=== PATIENT | male | born 1970 | race Caucasian/White ===

== ENCOUNTER 2024-07-08 09:18 | Outpatient (CLI) | payer OTHER, SELFPAY | END 2024-07-08 09:19 | disposition home or self-care (01) | LOC: NFLDREF 07-10 05:35 | PROVIDERS: PCP Physician Assistant Medical; Referring Provider Physician Assistant Medical; Visit Provider Physician Assistant Medical | DX: Z12.5 Encounter for screening for malignant neoplasm of prostate (principal); I10 Essential (primary) hypertension; Z13.6 Encounter for screening for cardiovascular disorders; Z13.1 Encounter for screening for diabetes mellitus | CPT/HCPCS: 80053; 80061; 84443; G0103 ==